=== PATIENT | male | born 2000 | race Caucasian/White ===

== ENCOUNTER 2024-08-26 12:36 | Emergency (ER) | payer OTHER, SELFPAY ==
[2024-08-26 12:38] VITALS: BP 134/50
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
--- NOTE | 2024-08-26 13:41 | EDRN ---
Reviewed discharge instructions with patient. Verbalized understanding. Patient escorted to Crisis.
[2024-08-26 13:43] VITALS: BP 112/67
== END 2024-08-26 13:43 | disposition home or self-care (01) ==
LOC: EMR 12:36
PROVIDERS: EMERGENCY PHYSICIAN Student in an Organized Health Care Education/Training Program
DX: H57.10 Ocular pain, unspecified eye (principal); H60.90 Unspecified otitis externa, unspecified ear; T65.891A Toxic effect of other specified substances, accidental (unintentional), initial encounter; Y92.9 Unspecified place or not applicable; H92.09 Otalgia, unspecified ear; G80.9 Cerebral palsy, unspecified; Z91.51 Personal history of suicidal behavior
CPT/HCPCS: 99282